=== PATIENT | male | born 1960 | race African-American/Black ===

== ENCOUNTER 2021-04-09 04:14 | Day surgery (SDC) | payer OTHER ==
[2021-03-07 09:48] VITALS: BMI 24.3
[2021-04-09] MEDS ORDERED: BUPIVACAINE HCL/PF 0.25% (2.5MG/ML) 10 ML VIAL ONE (07:11)
[2021-04-09] MEDS ORDERED: methylPREDNISolone ACET (DEPO) 80 MG/1 ML VIAL ONE (07:11)
[2021-04-09] MEDS ORDERED: LIDOCAINE HCL/PF 2% SDV 5ML VIAL ONE (07:32)
[2021-04-09] MEDS ORDERED: PROPOFOL 20 ML ONE ×2 (07:33)
[2021-04-09] MEDS ORDERED: BUPIVACAINE HCL/PF 0.25% (2.5MG/ML) 10 ML VIAL IJ ONE ×2 (07:53)
[2021-04-09] MEDS ORDERED: LIDOCAINE HCL 1% PRESERVATIVE FREE - 30ML VIAL EP ONE (07:53)
[2021-04-09] MEDS ORDERED: methylPREDNISolone ACET (DEPO) 80 MG/1 ML VIAL IM ONE (07:53)
[2021-04-09 09:57] VITALS: BP 133/90; PULSE 78; TEMP 97.8
== END 2021-04-09 09:57 | disposition home or self-care (01) ==
LOC: JASU-SURG 04:14
PROVIDERS: ATTEND Neurological Surgery
PROC: 3E0R33Z Introduction of Anti-inflammatory into Spinal Canal, Percutaneous Approach (ICD-10-PCS; 2021-04-09)
PROC: 3E0R3BZ Introduction of Anesthetic Agent into Spinal Canal, Percutaneous Approach (ICD-10-PCS; principal; 2021-04-09 07:30)
DX: M51.16 Intervertebral disc disorders with radiculopathy, lumbar region (principal)
CPT/HCPCS: 76000-TC-FY

== ENCOUNTER 2021-05-07 05:14 | Day surgery (SDC) | payer OTHER ==
[2021-05-02 17:47] VITALS: BMI 24.3
[2021-05-07] MEDS ORDERED: MIDAZOLAM HCL 2 MG/2 ML SINGLE DOSE VIAL ONE (08:57)
[2021-05-07] MEDS ORDERED: IOHEXOL 180 MG/1 ML ML IJ ONE (09:10)
[2021-05-07] MEDS ORDERED: LIDOCAINE HCL 1% PRESERVATIVE FREE - 30ML VIAL NR ONE (09:10)
[2021-05-07] MEDS ORDERED: BUPIVACAINE HCL/PF 0.5% (5 MG/ML) 30 ML VIAL IJ ONE (09:10)
[2021-05-07] MEDS ORDERED: methylPREDNISolone ACET (DEPO) 80 MG/1 ML VIAL NR ONE (09:10)
[2021-05-07] MEDS ORDERED: BUPIVACAINE HCL/PF 0.25% (2.5MG/ML) 10 ML VIAL IJ ONE (09:10)
[2021-05-07 11:59] VITALS: PULSE 68
[2021-05-07 12:06] VITALS: BP 128/89; TEMP 98.2
== END 2021-05-07 10:35 | disposition home or self-care (01) ==
LOC: JASU-SURG 05:14
PROVIDERS: ATTEND Neurological Surgery
PROC: 3E0R33Z Introduction of Anti-inflammatory into Spinal Canal, Percutaneous Approach (ICD-10-PCS; 2021-05-07)
PROC: 3E0R3BZ Introduction of Anesthetic Agent into Spinal Canal, Percutaneous Approach (ICD-10-PCS; principal; 2021-05-07 08:30)
DX: M54.16 Radiculopathy, lumbar region (principal); M48.061 Spinal stenosis, lumbar region without neurogenic claudication; M54.5 Low back pain
CPT/HCPCS: 76000-TC-FY

== ENCOUNTER 2021-12-31 04:18 | Inpatient (IN) | payer OTHER ==
[2021-12-29 12:27] VITALS: BMI 26.2
[2021-12-31] MEDS ORDERED: THROMBIN (BOVINE) 5,000 UNIT VIAL TP ONE ×2 (07:28→08:31)
[2021-12-31] MEDS ORDERED: BUPIVACAINE HCL/PF 0.5% (5MG/ML) 10 ML VIAL ONE (07:28)
[2021-12-31] MEDS ORDERED: MIDAZOLAM HCL 2 MG/2 ML SINGLE DOSE VIAL ONE (07:30)
[2021-12-31] MEDS ORDERED: PROPOFOL 80 ML ONE (07:31)
[2021-12-31] MEDS ORDERED: PROPOFOL 20 ML ONE ×12 (07:32→13:43)
[2021-12-31] MEDS ORDERED: VANCOMYCIN 1,000 MG VIAL (RESTRICTED TO ID ONLY) ONE ×3 (07:40→11:41)
[2021-12-31] MEDS ORDERED: ceFAZolin SODIUM 1 GM VIAL ONE ×3 (07:40→18:31)
[2021-12-31] MEDS ORDERED: TRANEXAMIC ACID 1000 MG/10 ML VIAL ONE (07:40)
[2021-12-31] MEDS ORDERED: GLYCOPYRROLATE 0.2 MG/1 ML VIAL ONE (07:40)
[2021-12-31] MEDS ORDERED: SODIUM CHLORIDE 0.9% P/F 10 ML VIAL IJ ONE ×3 (07:40→12:18)
[2021-12-31] MEDS ORDERED: ROCURONIUM BROMIDE 50 MG/5 ML SYRINGE ONE (07:50)
[2021-12-31] MEDS ORDERED: LIDOCAINE HCL/PF 2% SDV 5ML VIAL ONE (07:51)
[2021-12-31] MEDS ORDERED: ETOMIDATE 20 MG/10 ML AMPUL IVPUSH ONE (07:52)
[2021-12-31] MEDS ORDERED: ceFAZolin SODIUM 1 GM VIAL IVPB ONE ×2 (07:54→12:19)
[2021-12-31] MEDS ORDERED: VANCOMYCIN 1,000 MG VIAL (RESTRICTED TO ID ONLY) IVPB ONE ×2 (07:57→08:31)
[2021-12-31] MEDS ORDERED: ePHEDrine SULFATE 50 MG/1 ML AMPULE ONE ×2 (09:03→10:40)
[2021-12-31] MEDS ORDERED: BACITRACIN 15 GM TUBE TOPICAL OINTMENT ONE (09:48)
[2021-12-31] MEDS ORDERED: PHENYLEPHRINE HCL 10 MG/1 ML SINGLE DOSE VIAL ONE (10:49)
[2021-12-31] MEDS ORDERED: ONDANSETRON 4 MG/2 ML VIAL ONE (12:43)
[2021-12-31] MEDS ORDERED: DEXAMETHASONE SOD PHOSPHATE 4 MG/1 ML VIAL ONE (12:43)
[2021-12-31] MEDS ORDERED: BUPIVACAINE HCL/PF 0.25% (2.5MG/ML) 10 ML VIAL ONE (12:57)
[2021-12-31] MEDS ORDERED: ACETAMINOPHEN INJECTION 100 ML IVPB ONE (13:34)
[2021-12-31] MEDS ORDERED: BUPIVACAINE HCL/PF 0.25% (2.5MG/ML) 10 ML VIAL IJ ONE (13:50)
[2021-12-31] MEDS ORDERED: SUGAMMADEX SODIUM 200 MG/2 ML VIAL ONE (13:54)
[2021-12-31] MEDS ORDERED: BISACODYL 10 MG SUPP.RECT RC PRN (14:22)
[2021-12-31] MEDS ORDERED: ONDANSETRON 4 MG/2 ML VIAL IVPUSH PRN ×3 (14:22→14:47)
[2021-12-31] MEDS ORDERED: BACITRACIN 15 GM TUBE TOPICAL OINTMENT TP ONE (14:29)
[2021-12-31] MEDS ORDERED: D5-1/2NS+20 MEQ KCL - 1,000 ML IV SCH (14:30)
[2021-12-31] MEDS ORDERED: DEXAMETHASONE SOD PHOSPHATE 4 MG/1 ML VIAL IVPUSH PRN (14:47)
[2021-12-31] MEDS ORDERED: PROMETHAZINE HCL 25 MG/1 ML VIAL IVPUSH PRN (14:47)
[2021-12-31] MEDS ORDERED: PROMETHAZINE HCL 25 MG/1 ML VIAL IVPB PRN (14:47)
[2021-12-31] MEDS ORDERED: LACTATED RINGERS SOLUTION 1,000 ML IV SCH (15:00)
[2021-12-31] MEDS: HYDROmorphone *PCA* 10MG/50ML DISP.SYRIN PCA SCH (15:27)
[2021-12-31 15:59] LABS: HEMATOCRIT 38.9 % (35.4-49); HEMOGLOBIN 12.4 GM/dL (11.7-16.9); MCH 28.2 pg (25.7-33.7); MEAN CELL VOLUME 88.1 fl (80-96); MEAN PLT VOLUME 7.3 fl (7.5-11.1); PLATELET COUNT 235 10^3/uL (134-434); RBC 4.42 M/mm3 (4.00-5.60); RDW 14.2 % (11.9-15.9); WHITE BLOOD COUNT 13.8 K/mm3 (4.0-10.0)
[2021-12-31] MEDS: diazePAM 5 MG TABLET PO SCH ×2 (16:13→21:53)
[2021-12-31 16:21] LABS: BLOOD UREA NITROGEN 19.9 mg/dL (7-18)
[2021-12-31 16:25] LABS: CREATININE 1.6 mg/dL (0.55-1.3)
[2021-12-31] MEDS ORDERED: CEFAZOLIN 1 GM in DEXTROSE 5%-WATER - 50 ML IVPB SCH ×2 (18:00→18:24)
[2021-12-31] MEDS ORDERED: DEXTROSE 5%-WATER - 50 ML IVPB ONE (18:32)
[2021-12-31] MEDS: CEFAZOLIN 1 GM in DEXTROSE 5%-WATER - 50 ML IVPB SCH (18:37)
[2021-12-31] MEDS: QUEtiapine FUMARATE 100 MG TABLET (FP) PO SCH (21:25)
[2021-12-31] MEDS: DOCUSATE SODIUM 100 MG CAPSULE (FP) PO SCH (21:26)
[2021-12-31] MEDS: GABAPENTIN 300 MG CAPSULE PO SCH (21:26)
[2021-12-31] MEDS: ROSUVASTATIN CA 5 MG TABLET PO SCH (21:26)
[2022-01-01] MEDS ORDERED: DEXTROSE 5%-WATER - 50 ML IVPB ONE ×2 (02:02→09:50)
[2022-01-01] MEDS ORDERED: ceFAZolin SODIUM 1 GM VIAL ONE ×2 (02:02→09:50)
[2022-01-01] MEDS: CEFAZOLIN 1 GM in DEXTROSE 5%-WATER - 50 ML IVPB SCH ×2 (02:22→09:56)
[2022-01-01] MEDS: D5-1/2NS+20 MEQ KCL - 20 MEQ/1,000 ML INFUS.BAG IV SCH ×2 (02:22→15:32)
[2022-01-01] MEDS: diazePAM 5 MG TABLET PO SCH ×3 (05:52→21:48)
[2022-01-01] MEDS: DOCUSATE SODIUM 100 MG CAPSULE (FP) PO SCH ×3 (05:52→21:47)
[2022-01-01] MEDS: LOSARTAN POTASSIUM 50 MG TABLET PO SCH (09:55)
[2022-01-01] MEDS: QUEtiapine FUMARATE 100 MG TABLET (FP) PO SCH ×2 (09:55→21:46)
[2022-01-01] MEDS ORDERED: amLODIPine BESYLATE 10 MG TABLET (FP) PO SCH (10:00)
[2022-01-01] MEDS: HYDROmorphone *PCA* 10MG/50ML DISP.SYRIN PCA SCH (15:30)
[2022-01-01] MEDS: ROSUVASTATIN CA 5 MG TABLET PO SCH (21:46)
[2022-01-01] MEDS: GABAPENTIN 300 MG CAPSULE PO SCH (21:46)
[2022-01-01] MEDS: amLODIPine BESYLATE 10 MG TABLET (FP) PO SCH (21:46)
[2022-01-02] MEDS: D5-1/2NS+20 MEQ KCL - 20 MEQ/1,000 ML INFUS.BAG IV SCH ×2 (02:10→13:43)
[2022-01-02] MEDS: diazePAM 5 MG TABLET PO SCH ×3 (06:02→22:06)
[2022-01-02] MEDS: DOCUSATE SODIUM 100 MG CAPSULE (FP) PO SCH ×3 (06:04→22:05)
[2022-01-02] MEDS: LOSARTAN POTASSIUM 50 MG TABLET PO SCH (09:51)
[2022-01-02] MEDS: QUEtiapine FUMARATE 100 MG TABLET (FP) PO SCH ×2 (09:53→22:06)
[2022-01-02] MEDS: HYDROmorphone *PCA* 10MG/50ML DISP.SYRIN PCA SCH ×2 (11:34→17:06)
[2022-01-02] MEDS: ACETAMINOPHEN 325 MG TABLET (FP) PO PRN (20:43)
[2022-01-02] MEDS: ROSUVASTATIN CA 5 MG TABLET PO SCH (22:05)
[2022-01-02] MEDS: GABAPENTIN 300 MG CAPSULE PO SCH (22:05)
[2022-01-02] MEDS: amLODIPine BESYLATE 10 MG TABLET (FP) PO SCH (22:05)
[2022-01-03] MEDS: diazePAM 5 MG TABLET PO SCH ×3 (06:00→15:18)
[2022-01-03] MEDS: DOCUSATE SODIUM 100 MG CAPSULE (FP) PO SCH ×3 (06:00→21:11)
[2022-01-03] MEDS: QUEtiapine FUMARATE 100 MG TABLET (FP) PO SCH ×2 (09:54→21:11)
[2022-01-03] MEDS: MAGNESIUM CITRATE 300 ML BOTTLE PO PRN ×2 (09:54→14:11)
[2022-01-03] MEDS: LOSARTAN POTASSIUM 50 MG TABLET PO SCH (09:54)
[2022-01-03] MEDS: amLODIPine BESYLATE 10 MG TABLET (FP) PO SCH (21:11)
[2022-01-03] MEDS: GABAPENTIN 300 MG CAPSULE PO SCH (21:11)
[2022-01-03] MEDS: ROSUVASTATIN CA 5 MG TABLET PO SCH (21:11)
[2022-01-03] MEDS ORDERED: diazePAM 5 MG TABLET PO SCH (22:00)
[2022-01-03] MEDS: oxyCODONE HCL 5 MG TABLET PO PRN (22:07)
[2022-01-04] MEDS: DOCUSATE SODIUM 100 MG CAPSULE (FP) PO SCH ×3 (05:23→21:10)
[2022-01-04] MEDS: diazePAM 5 MG TABLET PO SCH ×3 (07:36→21:10)
[2022-01-04] MEDS: QUEtiapine FUMARATE 100 MG TABLET (FP) PO SCH ×2 (09:53→21:10)
[2022-01-04] MEDS: oxyCODONE HCL 5 MG TABLET PO PRN (09:53)
[2022-01-04] MEDS: LOSARTAN POTASSIUM 50 MG TABLET PO SCH (09:53)
[2022-01-04] MEDS: GABAPENTIN 300 MG CAPSULE PO SCH (21:10)
[2022-01-04] MEDS: amLODIPine BESYLATE 10 MG TABLET (FP) PO SCH (21:10)
[2022-01-04] MEDS: ROSUVASTATIN CA 5 MG TABLET PO SCH (21:10)
[2022-01-05] MEDS: DOCUSATE SODIUM 100 MG CAPSULE (FP) PO SCH ×3 (05:31→21:04)
[2022-01-05] MEDS: diazePAM 5 MG TABLET PO SCH ×3 (05:32→21:05)
[2022-01-05] MEDS: oxyCODONE HCL 5 MG TABLET PO PRN ×2 (06:33→21:05)
[2022-01-05] MEDS: LOSARTAN POTASSIUM 50 MG TABLET PO SCH (11:26)
[2022-01-05 15:46] LABS: HEMATOCRIT 32.3 % (35.4-49); HEMOGLOBIN 10.8 GM/dL (11.7-16.9); MCHC 33.4 g/dl (32.0-35.9); MEAN CELL VOLUME 86.7 fl (80-96); MEAN PLT VOLUME 7.1 fl (7.5-11.1); PLATELET COUNT 316 10^3/uL (134-434); RBC 3.73 M/mm3 (4.00-5.60); RDW 13.1 % (11.9-15.9); WHITE BLOOD COUNT 7.6 K/mm3 (4.0-10.0)
[2022-01-05 16:16] LABS: BLOOD UREA NITROGEN 11.2 mg/dL (7-18); CALCIUM 9.3 mg/dL (8.5-10.1)
[2022-01-05 16:19] LABS: CREATININE 0.9 mg/dL (0.55-1.3)
[2022-01-05 16:21] LABS: BILIRUBIN,TOTAL 0.8 mg/dL (0.2-1); TOT PROT 6.1 g/dl (6.4-8.2)
[2022-01-05 16:33] LABS: ALBUMIN 2.6 g/dl (3.4-5.0)
[2022-01-05] MEDS: QUEtiapine FUMARATE 100 MG TABLET (FP) PO SCH (21:04)
[2022-01-05] MEDS: amLODIPine BESYLATE 10 MG TABLET (FP) PO SCH (21:04)
[2022-01-05] MEDS: ROSUVASTATIN CA 5 MG TABLET PO SCH (21:04)
[2022-01-05] MEDS: GABAPENTIN 300 MG CAPSULE PO SCH (21:05)
[2022-01-06] MEDS: DOCUSATE SODIUM 100 MG CAPSULE (FP) PO SCH ×2 (06:13→14:42)
[2022-01-06] MEDS: diazePAM 5 MG TABLET PO SCH ×2 (06:13→14:40)
[2022-01-06] MEDS: LOSARTAN POTASSIUM 50 MG TABLET PO SCH (10:04)
[2022-01-06] MEDS: ACETAMINOPHEN 325 MG TABLET (FP) PO PRN (12:33)
[2022-01-06] MEDS: oxyCODONE HCL 5 MG TABLET PO PRN (12:33)
[2022-01-06 15:10] VITALS: BP 106/67; PULSE 71; TEMP 98.1
== END 2022-01-06 15:32 | DRG 460 ==
LOC: J2C 04:18 → J8W 17:50
PROVIDERS: ADMIT Neurological Surgery; ATTEND Neurological Surgery
PROC: 0SG107J Fusion of 2 or more Lumbar Vertebral Joints with Autologous Tissue Substitute, Posterior Approach, Anterior Column, Open Approach (ICD-10-PCS; 2021-12-31)
PROC: 0ST20ZZ Resection of Lumbar Vertebral Disc, Open Approach (ICD-10-PCS; 2021-12-31)
PROC: 4A11X4G Monitoring of Peripheral Nervous Electrical Activity, Intraoperative, External Approach (ICD-10-PCS; 2021-12-31)
PROC: 0SG00AJ Fusion of Lumbar Vertebral Joint with Interbody Fusion Device, Posterior Approach, Anterior Column, Open Approach (ICD-10-PCS; principal; 2021-12-31 07:30)
DX: M48.061 Spinal stenosis, lumbar region without neurogenic claudication (principal); M51.16 Intervertebral disc disorders with radiculopathy, lumbar region; M41.86 Other forms of scoliosis, lumbar region; G96.12 Meningeal adhesions (cerebral) (spinal)
CPT/HCPCS: 36415; 72020-TC-FY; 72100-TC-FY; 76000-TC-FY; 80048; 80053; 85027; 88304-TC; 94010; 94760; 97116-GP; 97161-GP